=== PATIENT | female | born 1995 | race Two or more races ===

== ENCOUNTER 2020-07-02 12:25 | Emergency (ER) | payer OTHER ==
[~2020-07-02] VITALS: Ht 165.1 cm; Wt 56.7 kg
[2020-07-02] MEDS ORDERED: KETO10TA2 PO (15:07)
== END 2020-07-02 15:12 | disposition home or self-care (01) ==
LOC: ER 12:25
DX: S93.401A Sprain of unspecified ligament of right ankle, initial encounter (principal); X50.0XXA Overexertion from strenuous movement or load, initial encounter; Y93.89 Activity, other specified; Y92.89 Other specified places as the place of occurrence of the external cause; Y99.8 Other external cause status

== ENCOUNTER 2020-09-10 14:57 | Emergency (ER) | payer OTHER ==
[~2020-09-10] VITALS: Ht 165.1 cm; Wt 45.8 kg
[~2020-09-10 14:57] MED LIST: KETO10TA2 PO
[2020-09-10] MEDS ORDERED: PEPCID AC20 MG (16:43)
[2020-09-10] MEDS ORDERED: PROMETHAZINE HC25 M1 PO (16:44)
[2020-09-10] MEDS ORDERED: CIPRO500 MG (16:44)
[2020-09-10] MEDS ORDERED: SKELAXIN800 MG PO (21:51)
[2020-09-10] MEDS ORDERED: ACETAMINOPHEN650 M2 PO (21:51)
== END 2020-09-10 22:09 | disposition home or self-care (01) ==
LOC: ER 14:57
DX: A90 Dengue fever [classical dengue] (principal); B34.9 Viral infection, unspecified; R10.11 Right upper quadrant pain; D72.818 Other decreased white blood cell count

== ENCOUNTER 2021-05-06 19:01 | Emergency (ER) | payer OTHER ==
[~2021-05-06] VITALS: Ht 170.2 cm; Wt 47.6 kg
[~2021-05-06 19:01] MED LIST changes: +ACETAMINOPHEN650 M2 PO; +CIPRO500 MG; +PEPCID AC20 MG; +PROMETHAZINE HC25 M1 PO; +SKELAXIN800 MG PO
[2021-05-07] MEDS ORDERED: PROVERA2.5 MG PO (00:41)
== END 2021-05-07 02:03 ==
LOC: ER 19:01
DX: N93.8 Other specified abnormal uterine and vaginal bleeding (principal)

== ENCOUNTER 2021-12-28 12:14 | Emergency (ER) | payer OTHER ==
[~2021-12-28] VITALS: Ht 165.1 cm; Wt 54.4 kg
[~2021-12-28 12:14] MED LIST changes: +PROVERA2.5 MG PO
== END 2021-12-28 17:10 ==
LOC: ER 12:14
DX: R07.81 Pleurodynia (principal)

== ENCOUNTER 2022-04-29 07:01 | Emergency (ER) | payer OTHER ==
[~2022-04-29] VITALS: Ht 165.1 cm; Wt 52.2 kg
[2022-04-29] MEDS ORDERED: TRIAMCINOLONE A15 G3 TOP (11:42)
[2022-04-29] MEDS ORDERED: MEDROLPACK PO (11:42)
[2022-04-29] MEDS ORDERED: VISTARIL50 MG PO (11:42)
== END 2022-04-29 11:48 ==
LOC: ER 07:01
DX: L20.9 Atopic dermatitis, unspecified (principal); Z20.822 Contact with and (suspected) exposure to COVID-19

== ENCOUNTER 2022-05-03 12:13 | Emergency (ER) | payer OTHER ==
[~2022-05-03] VITALS: Ht 165.1 cm; Wt 54.4 kg
[~2022-05-03 12:13] MED LIST changes: +MEDROLPACK PO; +TRIAMCINOLONE A15 G3 TOP; +VISTARIL50 MG PO
[2022-05-03] MEDS ORDERED: KETO10TA2 PO (16:33)
== END 2022-05-03 16:41 | disposition home or self-care (01) ==
LOC: ER 12:13
DX: R10.2 Pelvic and perineal pain (principal)

== ENCOUNTER → 2022-10-05 | Emergency (ER) | payer OTHER ==
[~2022-10-05] VITALS: Ht 165.1 cm; Wt 52.2 kg
[~2022-10-05] MED LIST changes: +CLARITIN5 MG PO; +DOXYCYCLINE HY100 M2 PO; +METRONIDAZOLE500 MG PO; +SINGULAIR4 M1 PO
== END | disposition home or self-care (01) ==
LOC: ER 12:10
DX: N73.0 Acute parametritis and pelvic cellulitis (principal); N76.0 Acute vaginitis; Z91.018 Allergy to other foods

== ENCOUNTER 2022-10-21 22:13 | Emergency (ER) | payer OTHER ==
[~2022-10-21] VITALS: Ht 165.1 cm; Wt 54.4 kg
== END 2022-10-22 00:27 | disposition home or self-care (01) ==
LOC: ER 22:13
DX: M79.604 Pain in right leg (principal); Z88.6 Allergy status to analgesic agent; Z91.018 Allergy to other foods

== ENCOUNTER 2023-05-24 11:27 | Emergency (ER) | payer OTHER ==
[~2023-05-24] VITALS: Ht 167.6 cm; Wt 54.4 kg
== END 2023-05-24 13:31 | disposition home or self-care (01) ==
LOC: ER 11:28
DX: S80.12XA Contusion of left lower leg, initial encounter (principal); S80.11XA Contusion of right lower leg, initial encounter; S40.012A Contusion of left shoulder, initial encounter; S30.0XXA Contusion of lower back and pelvis, initial encounter; V49.9XXA Car occupant (driver) (passenger) injured in unspecified traffic accident, initial encounter; Y93.9 Activity, unspecified; Y92.413 State road as the place of occurrence of the external cause; Y99.9 Unspecified external cause status; Z88.8 Allergy status to other drugs, medicaments and biological substances; Z91.018 Allergy to other foods

== ENCOUNTER 2023-06-13 13:52 | Emergency (ER) | payer OTHER ==
[~2023-06-13] VITALS: Ht 165.1 cm; Wt 49.9 kg
[2023-06-13] MEDS ORDERED: CLARITIN10 M2 (14:20)
[2023-06-13 15:41] LABS: HEMATOCRIT 38.4 % (36.0-45.00); HEMOGLOBIN 12.9 g/dL (12.0-15.00); MEAN CELL VOLUME 93.4 fL (80.00-100.00); MEAN CORPUSCULAR HEMOGLOBIN 31.3 pg (27.00-32.0); MEAN CORPUSCULAR HGB CONC 33.5 g/dl (32.0-36.0); PLATELET COUNT 168 K/uL (150-450); RED BLOOD COUNT 4.11 M/uL (4.00-6.00); RED CELL DISTRIBUTION WIDTH 12.7 % (11.5-14.5)
[2023-06-13 16:07] LABS: ANION GAP 8 (10.0-20.0); BLOOD UREA NITROGEN 10 mg/dL (7-18); BUN CREA RATIO 18 (7.0-25.0); CALCIUM 9.2 mg/dL (8.5-10.1); CARBON DIOXIDE 27 mEq/L (21-32); CHLORIDE 107 mmol/L (98-107); CREATININE SERUM 0.57 mg/dL (0.55-1.02); GLUCOSE FASTING 77 mg/dL (65-100); OSMOLALITY SERUM 275 MOSM/KG (275-295); POTASSIUM 3.47 mEq/L (3.5-5.1); SODIUM 139 mmol/L (136-145)
[2023-06-13 16:25] LABS: HCG QUANTITATIVE < 1 mUI/mL (1-3)
[2023-06-13 16:32] LABS: URINE APPEARANCE Cloudy; URINE BILIRRUBIN Negative (NEGATIVE); URINE BLOOD Negative; URINE COLOR Yellow; URINE GLUCOSE Negative (NEGATIVE); URINE LEUKOCYTE Small; URINE NITRATE Negative; URINE PROTEIN Negative (NEGATIVE); URINE UROBILINOGEN 0.2 E.U./dl
[2023-06-13 16:36] LABS: URINE EPITHELIAL CELLS 94.1 uL (0.0-38.8); URINE WBC 80.3 uL (0.0-23.2)
== END 2023-06-13 21:43 | disposition home or self-care (01) ==
LOC: ER 13:53
PROVIDERS: General Practice
DX: N83.292 Other ovarian cyst, left side (principal); R10.31 Right lower quadrant pain; Z88.8 Allergy status to other drugs, medicaments and biological substances; Z91.018 Allergy to other foods

== ENCOUNTER 2023-08-11 22:02 | Emergency (ER) | payer OTHER ==
[~2023-08-11] VITALS: Ht 165.1 cm; Wt 53.5 kg
[~2023-08-11 22:02] MED LIST changes: +CLARITIN10 M2
[2023-08-11] MEDS ORDERED: EPINEphrine 10 ML DISP.SYRIN IV ONE (22:15)
[2023-08-11] MEDS ORDERED: METHYLPREDNISOLONE SOD SUCC 125 MG VIAL IV ONE (22:15)
[2023-08-12] MEDS ORDERED: FAMOTIDINE/PF 20 MG/2 ML VIAL IV PUSH STA (01:04)
[2023-08-12] MEDS ORDERED: CETIRIZINE HCL 5 MG/5 ML ML PO STA (01:05)
[2023-08-12] MEDS ORDERED: METHYLPREDNISOLONE SOD SUCC 125 MG VIAL IV STA (02:51)
[2023-08-12] MEDS ORDERED: EPINEPHRINE HCL/PF 1 MG/ML AMPUL SUBCUTANEO STA (03:55)
[2023-08-12] MEDS ORDERED: MEDROL8 MG PO (07:29)
[2023-08-12] MEDS ORDERED: ZYRTEC10 MG PO (07:29)
== END 2023-08-12 07:34 ==
LOC: ER 22:02
DX: T78.1XXA Other adverse food reactions, not elsewhere classified, initial encounter (principal); X58.XXXA Exposure to other specified factors, initial encounter; Z88.8 Allergy status to other drugs, medicaments and biological substances; Z91.018 Allergy to other foods